=== PATIENT | male | born 1945 | race Caucasian/White ===

== ENCOUNTER → 2018-08-28 | Outpatient (CLI) | payer MEDICARE ==
[~2018-08-28] MED LIST: ENAL20TA PO; HYDR12.58 PO; MELO15TA24 PO; OXYC5TAB3 PO; SIMV5TAB5 PO
[2018-08-28 10:36] LABS: BASOPHILS # (AUTO) 0.01 x10^3/uL (0-0.1); BASOPHILS % (AUTO) 0 % (0-1); EOSINOPHILS # (AUTO) 0.23 x10^3/uL (0-0.4); EOSINOPHILS % (AUTO) 4 % (1-7); LYMPHOCYTES # (AUTO) 1.14 x10^3/uL (1-3.4); LYMPHOCYTES % (AUTO) 20 % (22-44); MD NO; MEAN CORPUSCULAR HGB CONC 33.3 g/dL (33.2-36.2); MEAN CORPUSCULAR VOLUME 96.2 fL (81-97); MEAN PLATELET VOLUME 7.6 fL (7.4-10.4); MONOCYTES # (AUTO) 0.35 x10^3/uL (0.2-0.8); MONOCYTES % (AUTO) 6 % (2-9); NEUTROPHILS # (AUTO) 3.93 x10^3/uL (1.8-6.8); NEUTROPHILS % (AUTO) 70 % (42-75); PLATELET COUNT 179 x10^3/uL (130-400); RED BLOOD COUNT 4.44 x10^6/uL (4.38-5.82); RED CELL DISTRIBUTION WIDTH 13.3 % (9.4-14.8)
[2018-08-28 10:41] LABS: MICROSCOPIC AUTO
[2018-08-28 10:42] LABS: CULTURE INDICATED? NO
[2018-08-28 10:48] LABS: ALANINE AMINOTRANSFERASE 36 U/L (12-78); ALBUMIN 4.2 g/dL (3.4-5.0); ANION GAP 7 mmol/L (5-15); CALCIUM 8.9 mg/dL (8.5-10.1); CHLORIDE 99 mmol/L (98-107); CREATININE 0.62 mg/dL (0.7-1.3)
[2018-08-28 10:50] LABS: ALKALINE PHOSPHATASE 94 U/L (45-117); BILIRUBIN,TOTAL 0.8 mg/dL (0.2-1.0); TOTAL PROTEIN 8.2 g/dL (6.4-8.2)
== END | disposition home or self-care (01) ==
LOC: STAR 09:16
PROVIDERS: ATTEND Orthopaedic Surgery
DX: Z01.818 Encounter for other preprocedural examination (principal); M16.12 Unilateral primary osteoarthritis, left hip; M25.552 Pain in left hip
CPT/HCPCS: 36415; 80053; 81001; 85025; 87081; 93005

== ENCOUNTER 2018-09-02 05:30 | Inpatient (IN) | payer MEDICARE ==
[~2018-09-02] VITALS: Ht 152.4 cm; Wt 64.0 kg
[~2018-09-02 05:30] MED LIST changes: -OXYC5TAB3 PO
[2018-09-02] MEDS ORDERED: LACTATED RINGERS 1,000 ML IV SCH (06:04)
[2018-09-02 06:24] VITALS: BP 166/92
[2018-09-02] MEDS ORDERED: KETOROLAC 60 MG/2 ML ONE (06:54)
[2018-09-02] MEDS ORDERED: TRANEXAMIC ACID 100 MG/ML, 10ML ONE ×2 (06:55)
[2018-09-02] MEDS ORDERED: ROPIvacaine/PF 0.2%, 20 ML ONE (06:55)
[2018-09-02] MEDS ORDERED: EPINEPHRINE 1 MG/ML, 1ML ONE (06:56)
[2018-09-02] MEDS ORDERED: VANCOMYCIN 1,000 MG ONE (06:56)
[2018-09-02] MEDS ORDERED: SODIUM CHLORIDE 0.9% 100 ML ONE (06:56)
[2018-09-02] MEDS ORDERED: FENTANYL PF 250 MCG/5ML ONE (07:06)
[2018-09-02] MEDS ORDERED: MIDAZOLAM 1 MG/ML, 2ML ONE (07:06)
[2018-09-02] MEDS ORDERED: CEFAZOLIN 1,000 MG ONE (07:14)
[2018-09-02] MEDS ORDERED: ROCURONIUM 10 MG/ML,10ML ONE (07:14)
[2018-09-02] MEDS ORDERED: PROPOFOL 10 MG/ML, 20ML ONE (07:14)
[2018-09-02] MEDS ORDERED: ONDANSETRON 2MG/ML, 2ML ONE (07:14)
[2018-09-02] MEDS ORDERED: OXYcodone 5 MG/5 ML ORAL.SOL UDC PO PRN (08:00)
[2018-09-02] MEDS ORDERED: LABETALOL 5MG/ML, 20ML IV PRN (08:00)
[2018-09-02] MEDS ORDERED: ONDANSETRON ODT 8 MG PO PRN (08:00)
[2018-09-02] MEDS ORDERED: ACETAMINOPHEN 325 MG TABLET PO PRN (08:00)
[2018-09-02] MEDS ORDERED: FENTANYL PF 100 MCG/2ML IV PRN (08:00)
[2018-09-02] MEDS ORDERED: HYDROmorphone 2 MG/ML, 1ML ONE (09:12)
[2018-09-02] MEDS ORDERED: OXYcodone 5 MG/5 ML ORAL.SOL UDC ONE (09:12)
[2018-09-02] MEDS ORDERED: ACETAMINOPHEN 650 MG/20.3 ML UDC ONE (09:12)
[2018-09-02] MEDS: HYDROmorphone 1 MG/ML, 1ML IV PRN ×2 (09:18→09:38)
[2018-09-02] MEDS ORDERED: DIAZEPAM 5 MG TABLET PO PRN (09:30)
[2018-09-02] MEDS ORDERED: HYDROcodone/APAP 5/325 TABLET PO PRN (09:30)
[2018-09-02] MEDS ORDERED: PROMETHAZINE 12.5 MG SUPP PR PRN (09:30)
[2018-09-02] MEDS ORDERED: ONDANSETRON 2MG/ML, 2ML IV PRN (09:30)
[2018-09-02] MEDS ORDERED: morphine SULFATE 10 MG/ML, 1ML IV PRN (09:30)
[2018-09-02] MEDS ORDERED: ONDANSETRON 4 MG TABLET PO PRN (09:30)
[2018-09-02] MEDS ORDERED: BISACODYL 10 MG SUPP PR PRN (09:30)
[2018-09-02] MEDS ORDERED: MAGNESIUM HYDROXIDE 8%, 30ML UDC PO PRN (09:30)
[2018-09-02] MEDS ORDERED: DIPHENHYDRAMINE 25 MG CAPSULE PO PRN (09:30)
[2018-09-02 13:41] VITALS: BP 122/59
[2018-09-02] MEDS: D5%-0.45% NACL 1,000 ML IV SCH ×2 (15:00→23:00)
[2018-09-02] MEDS: CEFAZOLIN PMX 1GM/50ML 50 ML IVPB SCH ×2 (15:14→23:05)
[2018-09-02 18:29] VITALS: BP 154/82
[2018-09-02] MEDS: DOCUSATE 100 MG CAPSULE PO SCH (19:41)
[2018-09-02] MEDS: ACETAMINOPHEN 650 MG/20.3 ML UDC PO PRN (20:06)
[2018-09-03 00:01] VITALS: BP 138/87
[2018-09-03] MEDS: OXYcodone IR 5MG TABLET PO PRN ×2 (00:07→04:14)
[2018-09-03] MEDS: ACETAMINOPHEN 650 MG/20.3 ML UDC PO PRN ×3 (00:08→08:47)
[2018-09-03 05:17] VITALS: BP 131/75
[2018-09-03] MEDS ORDERED: ASPIRIN 81 MG TABLET EC PO SCH (06:00)
[2018-09-03] MEDS ORDERED: DEXAMETHASONE 4 MG/ML, 1ML IVPush SCH (06:00)
[2018-09-03] MEDS: D5%-0.45% NACL 1,000 ML IV SCH (07:00)
[2018-09-03 07:36] VITALS: BP 114/67
[2018-09-03] MEDS: DOCUSATE 100 MG CAPSULE PO SCH (07:53)
[2018-09-03] MEDS ORDERED: OXYC5TAB3 PO (08:54)
[2018-09-03] MEDS ORDERED: MULTIVITAMINS/MINERALS TABLET PO SCH (09:00)
[2018-09-03] MEDS ORDERED: ENALAPRIL 20MG TABLET PO SCH (09:00)
[2018-09-03] MEDS ORDERED: HYDROCHLOROTHIAZIDE 12.5 MG CAPSULE PO SCH (09:00)
[2018-09-03] MEDS ORDERED: KETOROLAC 30 MG/1 ML IV SCH (09:30)
== END 2018-09-03 10:55 | disposition home or self-care (01) | DRG 470 ==
LOC: ORIP 05:30 → 4NOR 10:02 → DCLOUNGE 09-03 10:35
PROVIDERS: ADMIT Orthopaedic Surgery; ATTEND Orthopaedic Surgery
PROC: 0SRB0JA Replacement of Left Hip Joint with Synthetic Substitute, Uncemented, Open Approach (ICD-10-PCS; principal; 2018-09-02 07:30)
DX: M16.12 Unilateral primary osteoarthritis, left hip (principal); I10 Essential (primary) hypertension; E78.00 Pure hypercholesterolemia, unspecified; Q65.89 Other specified congenital deformities of hip
CPT/HCPCS: 36415; 72170; 85014; 85018; 86850; 86900; C1713; G0378; J0171; J0690; J1100; J1170; J1885; J2250; J2405; J2704; J2795; J3010; J3370; C1776; J7120

== ENCOUNTER → 2020-04-27 | Outpatient (CLI) | payer MEDICARE ==
[~2020-04-27] MED LIST changes: +ACET-1600 PO; -HYDR12.58 PO; +HYDROCHLOROTH12.5 MG PO; +LISI-170 PO; +MULT-658 PO; +OXYC5TAB3 PO; +SIMV5TAB14 PO; -SIMV5TAB5 PO; +SODI1PAC12 NS
[2020-04-27 10:59] LABS: BASOPHILS # (AUTO) 0.02 x10^3/uL (0-0.1); BASOPHILS % (AUTO) 0 % (0-1); EOSINOPHILS # (AUTO) 0.28 x10^3/uL (0-0.4); EOSINOPHILS % (AUTO) 6 % (1-7); LYMPHOCYTES # (AUTO) 1.37 x10^3/uL (1-3.4); LYMPHOCYTES % (AUTO) 28 % (22-44); MD NO; MEAN CORPUSCULAR HGB CONC 33.3 g/dL (33.2-36.2); MEAN CORPUSCULAR VOLUME 99.1 fL (81-97); MEAN PLATELET VOLUME 7.4 fL (7.4-10.4); MONOCYTES # (AUTO) 0.42 x10^3/uL (0.2-0.8); MONOCYTES % (AUTO) 9 % (2-9); NEUTROPHILS # (AUTO) 2.88 x10^3/uL (1.8-6.8); NEUTROPHILS % (AUTO) 58 % (42-75); PLATELET COUNT 186 x10^3/uL (130-400); RED BLOOD COUNT 4.14 x10^6/uL (4.38-5.82); RED CELL DISTRIBUTION WIDTH 14.1 % (9.4-14.8)
[2020-04-27 11:07] LABS: ALANINE AMINOTRANSFERASE 28 U/L (12-78); ALBUMIN 3.9 g/dL (3.4-5.0); ANION GAP 6 mmol/L (5-15); CALCIUM 9.2 mg/dL (8.5-10.1); CHLORIDE 99 mmol/L (98-107); CREATININE 0.64 mg/dL (0.7-1.3)
[2020-04-27 11:09] LABS: ALKALINE PHOSPHATASE 64 U/L (45-117); BILIRUBIN,TOTAL 0.5 mg/dL (0.2-1.0); TOTAL PROTEIN 7.7 g/dL (6.4-8.2)
== END | disposition home or self-care (01) ==
LOC: STAR 09:40
PROVIDERS: ATTEND Orthopaedic Surgery
DX: Z01.818 Encounter for other preprocedural examination (principal); M16.11 Unilateral primary osteoarthritis, right hip; M25.551 Pain in right hip
CPT/HCPCS: 36415; 80053; 85025; 87081; 93005

== ENCOUNTER 2020-05-03 05:28 | Observation (INO) | payer MEDICARE ==
[~2020-05-03] VITALS: Ht 154.9 cm; Wt 57.6 kg
[2020-05-03] MEDS ORDERED: LACTATED RINGERS 1,000 ML IV SCH (05:53)
[2020-05-03 05:56] VITALS: BP 155/87
[2020-05-03] MEDS ORDERED: CHLORHEXIDINE 15 ML UDC ONE (06:00)
[2020-05-03] MEDS ORDERED: CHLORHEXIDINE 15 ML UDC MM ONE (06:00)
[2020-05-03] MEDS ORDERED: KETOROLAC 60 MG/2 ML ONE (06:20)
[2020-05-03] MEDS ORDERED: TRANEXAMIC ACID 100 MG/ML, 10ML ONE (06:20)
[2020-05-03] MEDS ORDERED: ROPIvacaine/PF 0.2%, 20 ML ONE (06:21)
[2020-05-03] MEDS ORDERED: EPINEPHRINE 1 MG/ML, 1ML ONE (06:21)
[2020-05-03] MEDS ORDERED: VANCOMYCIN 1,000 MG ONE (06:21)
[2020-05-03] MEDS ORDERED: SODIUM CHLORIDE 0.9% 50 ML ONE (06:21)
[2020-05-03] MEDS ORDERED: MIDAZOLAM 1 MG/ML, 2ML ONE (06:55)
[2020-05-03] MEDS ORDERED: FENTANYL PF 250 MCG/5ML ONE (06:56)
[2020-05-03] MEDS ORDERED: ACETAMINOPHEN 500 MG TABLET ONE (07:02)
[2020-05-03] MEDS ORDERED: GABAPENTIN 300 MG CAPSULE ONE (07:03)
[2020-05-03] MEDS ORDERED: PHENYLEPHRINE 10 MG/ML ONE (07:10)
[2020-05-03] MEDS ORDERED: SUGAMMADEX 200 MG/2 ML IVPush ONE (07:31)
[2020-05-03] MEDS ORDERED: hydrALAzine 20 MG/ML, 1ML IV PRN (08:00)
[2020-05-03] MEDS ORDERED: HALOPERIDOL 5 MG/ML IV PRN (08:00)
[2020-05-03] MEDS ORDERED: OXYcodone 5 MG/5 ML ORAL.SOL UDC PO PRN (08:00)
[2020-05-03] MEDS ORDERED: ALBUTEROL SULFATE 2.5 MG/3 ML NPPB PRN (08:00)
[2020-05-03] MEDS ORDERED: HYDROmorphone 2 MG/ML, 1ML IVPush PRN (08:00)
[2020-05-03] MEDS ORDERED: LABETALOL 5MG/ML, 20ML IV PRN (08:00)
[2020-05-03] MEDS ORDERED: PROMETHAZINE 25 MG/ML, 1ML IV PRN (08:00)
[2020-05-03] MEDS ORDERED: CEFAZOLIN 1,000 MG ONE (08:24)
[2020-05-03] MEDS ORDERED: DEXAMETHASONE 4 MG/ML, 1ML ONE (08:24)
[2020-05-03] MEDS ORDERED: ONDANSETRON 2MG/ML, 2ML ONE (08:24)
[2020-05-03] MEDS ORDERED: PROPOFOL 10 MG/ML, 20ML ONE (08:24)
[2020-05-03] MEDS ORDERED: NEOSTIGMINE 1 MG/ML, 10ML ONE (08:24)
[2020-05-03] MEDS ORDERED: ROCURONIUM 10MG/ML,5ML ONE (08:24)
[2020-05-03] MEDS ORDERED: SUCCINYLCHOLINE 20 MG/ML, 10ML ONE (08:24)
[2020-05-03] MEDS ORDERED: GLYCOPYRROLATE 0.2MG/1ML, 5ML ONE (08:24)
[2020-05-03] MEDS ORDERED: D5%-0.45% NACL 1,000 ML IV SCH (08:46)
[2020-05-03] MEDS ORDERED: OXYcodone 5 MG/5 ML ORAL.SOL UDC ONE (08:57)
[2020-05-03] MEDS ORDERED: FENTANYL PF 100 MCG/2ML ONE (08:57)
[2020-05-03] MEDS ORDERED: HYDROmorphone 1 MG/ML, 1ML INJ IVPush PRN (09:00)
[2020-05-03] MEDS ORDERED: DEXAMETHASONE 4 MG/ML, 1ML IVPush SCH (09:00)
[2020-05-03] MEDS ORDERED: ONDANSETRON 4 MG TABLET PO PRN (09:00)
[2020-05-03] MEDS ORDERED: ONDANSETRON 2MG/ML, 2ML IV PRN (09:00)
[2020-05-03] MEDS ORDERED: OXYcodone IR 5MG TABLET PO PRN (09:00)
[2020-05-03] MEDS ORDERED: POLYETHYLENE GLYCOL 17 GM PACKET PO PRN (09:00)
[2020-05-03] MEDS: FENTANYL PF 100 MCG/2ML IV PRN ×3 (09:00→09:10)
[2020-05-03] MEDS ORDERED: DOCUSATE 100 MG CAPSULE PO SCH (09:00)
[2020-05-03] MEDS ORDERED: DIPHENHYDRAMINE 50 MG CAPSULE PO PRN (09:00)
[2020-05-03] MEDS ORDERED: ALUMINUM/MAG/SIMETHICONE 30 ML UDC PO PRN (09:00)
[2020-05-03] MEDS ORDERED: DIAZEPAM 5 MG TABLET PO PRN (09:00)
[2020-05-03] MEDS ORDERED: MULTIVITAMINS/MINERALS TABLET PO SCH (09:00)
[2020-05-03] MEDS ORDERED: BISACODYL 10 MG SUPP PR PRN (09:00)
[2020-05-03] MEDS ORDERED: FERROUS SULFATE 325 MG TABLET PO SCH (09:00)
[2020-05-03] MEDS ORDERED: HYDROCHLOROTHIAZIDE 12.5 MG CAPSULE PO SCH (09:00)
[2020-05-03] MEDS ORDERED: PROMETHAZINE 25 MG/ML, 1ML IM PRN (09:00)
[2020-05-03] MEDS ORDERED: MAGNESIUM HYDROXIDE 8%, 30ML UDC PO PRN (09:00)
[2020-05-03] MEDS ORDERED: SENNA/DOCUSATE TABLET PO PRN (09:00)
[2020-05-03] MEDS ORDERED: ASCORBIC ACID 500 MG TABLET PO SCH (09:00)
[2020-05-03] MEDS ORDERED: PROMETHAZINE 12.5 MG SUPP PR PRN (09:00)
[2020-05-03] MEDS: ACETAMINOPHEN 500 MG TABLET PO SCH ×2 (09:00→15:46)
[2020-05-03] MEDS ORDERED: LISINOPRIL 20 MG TABLET PO SCH (09:00)
[2020-05-03] MEDS ORDERED: PSYLLIUM PACKET PO PRN (09:00)
[2020-05-03] MEDS ORDERED: TRANEXAMIC ACID 1,000 MG in SODIUM CHLORIDE 0.9% 100 ML IVPB ONE (09:15)
[2020-05-03 12:00] VITALS: BP 147/86
[2020-05-03] MEDS: CALCIUM/VITAMIN D3 250-125 TABLET PO SCH ×2 (12:19→17:00)
[2020-05-03] MEDS ORDERED: KETOROLAC 30 MG/1 ML IV SCH (14:00)
[2020-05-03] MEDS ORDERED: CEFAZOLIN PMX 2GM/50ML 50 ML IVPB SCH (15:15)
[2020-05-03] MEDS ORDERED: ASPIRIN 81 MG TABLET EC PO SCH (16:00)
[2020-05-03] MEDS ORDERED: ZOLPIDEM 5MG TABLET PO PRN (21:00)
== END 2020-05-03 17:43 | disposition home or self-care (01) ==
LOC: OUT 05:28 → ORIP 08:46 → 4NE 10:06
PROVIDERS: ADMIT Orthopaedic Surgery; ATTEND Orthopaedic Surgery
DX: M16.0 Bilateral primary osteoarthritis of hip (principal); I10 Essential (primary) hypertension; E78.5 Hyperlipidemia, unspecified; Z87.891 Personal history of nicotine dependence; Z79.899 Other long term (current) drug therapy
CPT/HCPCS: 27130; 36415; 72170; 86850; 86900; 87635; 96365; 96375; 97161; 97165; C1713; C1776; G0378; J0171; J0690; J1100; J1885; J2250; J2370; J2405; J2704; J2795; J3010; J3370; J7120; J2710; J0330